=== PATIENT | female | born 1965 | race Caucasian/White ===

== ENCOUNTER → 2016-08-21 | Outpatient (CLI) | payer BC, OTHER ==
[~2016-08-21] VITALS: Ht 160 cm; Wt 104.3 kg
[~2016-08-21] MED LIST: APAP650 PO; EMERGEN-C 1,01000 MG PO; TURMERIC500 M1 PO; UNICOMPLEX M TA1 TA1 PO; VALTREX 500 MG500 MG PO; VITAMIN D2000 UNIT PO
--- NOTE | ~2016-08-21 | HPC ---
[facility] [address] [place] [address] PAIN MANAGEMENT CONSULTATION Name: TAMERA LEWIS Room #: REG [facility] Tray#: [id number] Admission: 08/21/16 Attend Phys: Andrea Alvarez DO Discharge: Date of : 65 Report #: [id number] THIS REPORT FOR: //name// CC: [facility] physician/PCP Andrea Alvarez DATE OF SERVICE: 08/21/2016 CHIEF COMPLAINT: Postherpetic neuralgia. HISTORY OF PRESENT ILLNESS: As you know, the patient is a 51-year-old female who began experiencing left chest wall pain, left upper back pain and breast pain that began without inciting injury or trauma. Over a 2-day period, the patient began to experience a rash that was breaking out across this distribution. The pain became intense enough that she sought evaluation through an urgent care group who diagnosed the patient with herpes simplex and was given Valtrex and a Medrol Dosepak for pain control. The patient will complete her Valtrex today. This will make the 10th day of therapy. She has had improvement in the lesions themselves, they have crusted and are healing. She continues to experience burning sensations and numbness and tingling radiating across this dermatomal distribution. She is placing pain score at 2/10. She was referred to our pain clinic for evaluation for postherpetic neuralgia pain. The patient is using calamine and Benadryl lotion topically with some improvement in symptoms. PAST MEDICAL HISTORY: None. PAST SURGICAL HISTORY: 1. Two left knee surgeries in 1979. 2. Tonsillectomy and adenoidectomy. SOCIAL HISTORY: The patient denies tobacco, IV or illicit drug use. Admits to approximately 1 alcoholic beverage in a week. She is self employed, semi-retired. She is not receiving workman's compensation nor is she trying to obtain disability benefits. She is not in litigation in regards to her pain. She is unaccompanied today. REVIEW OF SYSTEMS: Positive for night sweats, fatigue and weakness, frequent and recurrent headaches, wearing corrective eyewear, blurred vision, hearing loss with tinnitus, chest pain with angina, palpitations, shortness of breath with walking and lying flat, changes in bowel movements, frequent urination, nocturia, rash, skin color changes, hair and nail changes, varicose veins, breast pain, breast discharge, numbness and tingling sensations across the distribution of the herpes zoster, and morbid obesity. All other review of systems negative per 12-point review of systems other than those listed in history of present illness. [address] [address] PAIN MANAGEMENT CONSULTATION Name: TAMERA LEWIS Room #: REG [facility].#: [id number] Admission: 08/21/16 Attend Phys: Andrea Alvarez DO Discharge: Date of : 65 Report #: [id number] PAIN IMPACT SCORE: 31/70 indicating moderate interference of daily activities secondary to pain. ALLERGIES: No known drug allergies. CURRENT MEDICATIONS: Ascorbic acid 1 tab per day, turmeric extract 500 mg once a day, cholecalciferol 2000 units per day, acetaminophen 650 one tab every 8 hours p.r.n., and valacyclovir 500 mg 3 times a day. IMAGING: No imaging available. PHYSICAL EXAMINATION: VITAL SIGNS: Blood pressure of 136/97, pulse 89, respiratory rate 14 and unlabored, the patient is 96% on room air, height 5 feet 3 inch tall, weight 230 pounds, and BMI calculated 40.8. GENERAL: Well-developed, well-nourished, well-hydrated, morbidly obese 51-year-old female, appearing her stated age, placing current pain score around 2/10. HEENT: Normocephalic, atraumatic. Pupils are equal, round, and reactive to light. Extraocular muscles are intact. Sclerae are nonicteric without injection. NEUROLOGIC: Cranial nerves 2-12 grossly intact. Speech is fluent. The patient deemed an excellent historian. LUNGS: Clear. No wheezing, rhonchi, or rales. CARDIOVASCULAR: Regular. No appreciable gallop or rub. ABDOMEN: Soft, obese, nontender, nondistended, normoactive bowel sounds. EXTREMITIES: Show no clubbing, no cyanosis, and no edema. MUSCULOSKELETAL: The patient shows zoster pattern of lesions radiating from the upper thoracic spine across the scapula on the left. There are no lesions noted in the axilla, lesions then began again along the breast line and radiate all the way to the sternum. There are noted well-healed lesions all throughout distribution on the anterior chest wall. The lesions on the upper thoracic area have improved significantly. There is only changes in skin color at this level. ASSESSMENT: 1. Postherpetic neuralgia. 2. Shingles. PLAN: 1. The patient has been referred to our clinic for postherpetic neuralgia pain. Her symptoms do correlate with the findings on physical exam. The descriptors the patient uses in regards to pain as well as the single dermatomal distribution would indicate zoster as the source of the patient's numbness, tingling, and burning sensations. The patient indicates that her pain has begun [address] [address] PAIN MANAGEMENT CONSULTATION Name: TAMERA LEWIS Room #: REG CLFrancis Feliz#: [id number] Admission: 08/21/16 Attend Phys: Andrea Alvarez DO Discharge: Date of : 65 Report #: [id number] to improve with the use of valacyclovir. The lesions that she has had are now healing at various levels, there are no open lesions, no areas of active skin weeping. The valacyclovir appears to be improving her symptoms quite quickly. She has one more day of valacyclovir and she will be off the medication entirely. Unfortunately, the patient continues to experience some discomfort for which medications have been ineffectively treating. She has been referred to our clinic to discuss options. 2. The patient and I discussed the options for treatment of postherpetic neuralgia, anecdotal evidence has been noted with use of thoracic epidural injections to reduce the inflammatory process and potentially stabilized neuronal membranes reducing pain from postherpetic neuralgia. There has also been shown good efficacy with initiation of neuropathic pain medications and the possible use of a low dose opioids. The patient is wishing to avoid medications if at all possible, but is interested in neuropathic pain medications for pain control. We also discussed topical agents that can be used to control pain. She is currently using calamine and Benadryl, other topicals would include topical lidocaine. After discussion of treatment options for postherpetic neuralgia, the patient chose conservative medical therapy. 3. The patient will be started on samples of Lyrica. I have given her 75 mg dose. She will continue this for 3 evenings and escalate to 150 mg dose for 3 evenings. If pain is intense and not improved at that level and she is experiencing no side effects of sleepiness, disorientation, confusion, increase to 225 mg p.o. at bedtime. She was given samples on medications for at least a 3-week. 4. The patient is to obtain [id number] lidocaine ointment 5% solutions, this can be applied topically to the lesions as necessary. We would recommend no more than 3 times a day. She will take this medication [id number]. If she is having difficulty with medication, discontinue it is use. She is to watch for any side effects such as changes in skin color, texture or increasing pain. If she note these effects, discontinue the medication and return to the calamine and Benadryl combination. 5. We will see the patient back in followup visit in about 2 weeks. We will review the efficacy of the Lyrica and determine if we need to continue this medication. We are hopeful that by treating this symptomology earlier, we will be able to reduce the potential long-term pain generator from this zoster. We will keep you apprised of her improvement in symptoms as noted. 6. We wish to thank the referring team for the opportunity to see the patient in consultation. We will keep you apprised her response to treatment as we address her postherpetic neuralgia. Again, we wish to thank you for the opportunity to participate in her care. <ELECTRONICALLY SIGNED> By: Andrea Alvarez DO 08/22/16 [id number] Andrea Alvarez DO /nt
[2016-08-21 09:55] VITALS: BP 136/97
== END | disposition home or self-care (01) ==
LOC: PAIN 07:09
DX: B02.29 Other postherpetic nervous system involvement (principal); B02.9 Zoster without complications; Z98.890 Other specified postprocedural states